=== PATIENT | male | born 1960 | race Caucasian/White ===

== ENCOUNTER → 2016-05-22 | Day surgery (SDC) | payer OTHER ==
[~2016-05-22] MED LIST: ACETYLCYSTEINE 20% 6,000 MG/30 ML ORAL SOLN VIAL ONE; LACTATED RINGER'S 1000 ML INJ 1,000 ML ONE; PROPOFOL 500 MG/50 ML BTL IV ONE; STERILE WATER FOR INJ 20 ML VIAL ONE
--- NOTE | 2016-05-22 09:48 | GIPROC ---
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 TOPICAL ANESTHETIC: none CONSENT: The patient understands the risks and benefits of the procedure and understands that these risks include, but are not limited to: sedation, allergic reaction, infection, perforation and/or bleeding. Alternative means of evaluation and treatment include, among others: physical exam, x-rays, and/or surgical intervention. The patient elects to proceed with this endoscopic procedure. medical equipment was checked for proper function. Hand hygiene and appropriate measures for infection prevention was taken. After the risks, benefits and alternatives of the procedure were thoroughly explained, Informed consent was verified, confirmed and timeout was successfully executed by the treatment team. The patient was anesthetized with topical anesthesia and the EG-2990i ([id number]) endoscope was introduced through the mouth and advanced to the second portion of the duodenum. Retroflexed views revealed no abnormalities The gastroscope was then slowly withdrawn and removed. NODULER MUCOSA WITH GASTRITIS bX FROM ANTRUM. RFA procedure: Given the above findings, the decision was made to treat the Tejada's esophagus with endoscopic ablation, using the Halo 90 cap device. The Tejada's esophagus tissue was irrigated with Mucomyst (1%) mixed with water. 40 application, patient had few areas in distal esophagus from previous treatement. ESOPHAGUS: There was a 4cm segment of Tejada's esophagus found in the lower third of the esophagus. ADVERSE EVENTS: There were no complications. IMPRESSIONS: 1. NODULER MUCOSA WITH GASTRITIS bX FROM ANTRUM 2. There was a 4cm segment of Tejada's esophagus found in the lower third of the esophagus 3. Retroflexed views revealed no abnormalities RECOMMENDATIONS: 1. Await biopsy results. Biopsy results will not be ready for 7-10 days. If you don't hear from us in two weeks, call our office for biopsy results. 2. Clear liquid for few days advance as tolerated. continue PPI twice daily PATIENT CONDITION: stable DISPOSITION: Home REPEAT EXAM: Return 3 months EGD Christy Garner MD eSigned: Christy Garner MD 05/22/2016 9:48 AM cc: Kevin Dacosta M.D.
== END | disposition home or self-care (01) ==
LOC: ESDC 07:47
PROVIDERS: ATTEND Hospitalist
DX: K22.70 Barrett's esophagus without dysplasia (principal); K29.50 Unspecified chronic gastritis without bleeding; K63.89 Other specified diseases of intestine; E11.9 Type 2 diabetes mellitus without complications; Z79.84 Long term (current) use of oral hypoglycemic drugs
CPT/HCPCS: 00740; 43239; 43270; 82948; 88305; 88312; J3010; J7120

== ENCOUNTER → 2016-09-04 | Day surgery (SDC) | payer OTHER ==
--- NOTE | 2016-09-04 10:49 | GIPROC ---
[facility] [address] [place], [address] EGD PROCEDURE REPORT EXAM DATE: 09/04/2016 PATIENT NAME: Mal Washington MR #: [id number] BIRTHDATE: 1960 ATTENDING: Christy Garner MD ORDER #: [id number] AUTHORIZATION REP: Rosita Kilpatrick RN STATUS: outpatient INDICATIONS: The patient is a 56 yr old male here for an EGD due to surveillance and andrade's FU PROCEDURE PERFORMED: EGD w/ biopsy EGD w/ snare technique EGD w/ ablation MEDICATIONS: None and Per Anesthesia. TOPICAL ANESTHETIC: none CONSENT: The patient understands the risks and benefits of the procedure and understands that these risks include, but are not limited to: sedation, allergic reaction, infection, perforation and/or bleeding. Alternative means of evaluation and treatment include, among others: physical exam, x-rays, and/or surgical intervention. The patient elects to proceed with this endoscopic procedure. medical equipment was checked for proper function. Hand hygiene and appropriate measures for infection prevention was taken. After the risks, benefits and alternatives of the procedure were thoroughly explained, Informed consent was verified, confirmed and timeout was successfully executed by the treatment team. The patient was anesthetized with topical anesthesia and the EC-2990i ([id number]) endoscope was introduced through the mouth and advanced to the second portion of the duodenum. Retroflexed views revealed no abnormalities The gastroscope was then slowly withdrawn and removed. ESOPHAGUS: There was evidence of Andrade's esophagus found in the distal esophagus in form of few isles in the distal esophagus this was treated with hallo 90, 30 applications per protocol patient also has gastritis Bx was done from antrum multiple polyps in the body of stomach 1 removed from the body by snare ADVERSE EVENTS: There were no complications. IMPRESSIONS: 1. There was Andrade's esophagus found in the distal esophagus 2. Retroflexed views revealed no abnormalities RECOMMENDATIONS: 1. Await biopsy results. Biopsy results will not be ready for 7-10 days. If you don't hear from us in two weeks, call our office for biopsy results. 2. Anti-reflux regimen 3. Continue PPI 4. Avoid NSAIDS PATIENT CONDITION: stable DISPOSITION: Home REPEAT EXAM: Return 3 months as needed for EGD with hallo ablation Christy Garner MD eSigned: Christy Garner MD 09/04/2016 10:49 AM cc: Kevin Dacosta M.D. PATIENT NAME: Mal Washington MR#: [id number]
== END | disposition home or self-care (01) ==
LOC: ESDC 08:48
PROVIDERS: ATTEND Hospitalist
DX: K22.70 Barrett's esophagus without dysplasia (principal); K29.50 Unspecified chronic gastritis without bleeding; K31.7 Polyp of stomach and duodenum; E11.9 Type 2 diabetes mellitus without complications; Z79.4 Long term (current) use of insulin
CPT/HCPCS: 00740; 43239; 43251; 43270; 82948; 88305; 88312; J3010; J7120

== ENCOUNTER → 2017-01-01 | Day surgery (SDC) | payer OTHER ==
[~2017-01-01] MED LIST changes: -STERILE WATER FOR INJ 20 ML VIAL ONE
--- NOTE | 2017-01-01 09:13 | GIPROC ---
[facility] [address] [facility] [place], [address] EGD PROCEDURE REPORT EXAM DATE: 01/01/2017 PATIENT NAME: Mal Washington MR #: [id number] BIRTHDATE: 1960 ATTENDING: Christy Garner MD ORDER #: [id number] ICEBOX MAN: Deniz Pierre RN STATUS: outpatient INDICATIONS: The patient is a 56 yr old male here for an EGD due to history of andrade's PROCEDURE PERFORMED: EGD w/ ablation MEDICATIONS: None and Per Anesthesia. TOPICAL ANESTHETIC: none CONSENT: The patient understands the risks and benefits of the procedure and understands that these risks include, but are not limited to: sedation, allergic reaction, infection, perforation and/or bleeding. Alternative means of evaluation and treatment include, among others: physical exam, x-rays, and/or surgical intervention. The patient elects to proceed with this endoscopic procedure. medical equipment was checked for proper function. Hand hygiene and appropriate measures for infection prevention was taken. After the risks, benefits and alternatives of the procedure were thoroughly explained, Informed consent was verified, confirmed and timeout was successfully executed by the treatment team. The patient was anesthetized with topical anesthesia and the EG-2990i ([id number]) endoscope was introduced through the mouth and advanced to the second portion of the duodenum. Retroflexed views revealed no abnormalities The gastroscope was then slowly withdrawn and removed. Patient is known to have andrade's esophagus with previous ablation with halo, the patient has fewIslands of Andrade's in the distal esophagus which was ablated by halo 90, total of 40 applications divieded in two episods with scrubing the tissue from esophagus in between. ADVERSE EVENTS: There were no complications. IMPRESSIONS: 1. Patient is known to have andrade's esophagus with previous ablation with halo, the patient has fewIslands of Andrade's in the distal esophagus which was ablated by halo 90, total of 40 applications divieded in two episods with scrubing the tissue from esophagus in between 2. Retroflexed views revealed no abnormalities RECOMMENDATIONS: 1. Anti-reflux regimen 2. Protonix 40 Md twice daily clear liquid PATIENT CONDITION: stable DISPOSITION: Home REPEAT EXAM: Return 6 months EGD Christy Garner MD eSigned: Christy Garner MD 01/01/2017 9:13 AM cc: Kevin Dacosta M.D.
== END | disposition home or self-care (01) ==
LOC: ESDC 06:45
PROVIDERS: ATTEND Hospitalist
DX: K22.70 Barrett's esophagus without dysplasia (principal); E11.9 Type 2 diabetes mellitus without complications; Z79.4 Long term (current) use of insulin
CPT/HCPCS: 00740; 43270; 82948; J3010; J7120